=== PATIENT | female | born 1975 | race Caucasian/White ===

== ENCOUNTER → 2020-05-17 11:24 | Outpatient (BNVA) | payer OTHER, SELFPAY | PROVIDERS: Family Provider Nurse Practitioner; PCP Family Medicine; Visit Provider Nurse Practitioner Family | DX: J06.9 Acute upper respiratory infection, unspecified (principal); Z20.818 Contact with and (suspected) exposure to other bacterial communicable diseases | CPT/HCPCS: 87635 ==

== ENCOUNTER → 2020-05-22 11:39 | Outpatient (BNVA) | payer OTHER, SELFPAY | PROVIDERS: Family Provider Nurse Practitioner; PCP Family Medicine; Visit Provider Family Medicine | DX: Z13.6 Encounter for screening for cardiovascular disorders (principal); F98.8 Other specified behavioral and emotional disorders with onset usually occurring in childhood and adolescence | CPT/HCPCS: 80053; 80061; 85025 ==

== ENCOUNTER → 2020-07-03 13:32 | Outpatient (BNVA) | payer OTHER, SELFPAY | PROVIDERS: Family Provider Nurse Practitioner; PCP Family Medicine; Visit Provider Family Medicine | DX: Z79.891 Long term (current) use of opiate analgesic (principal) | CPT/HCPCS: 80307 ==

== ENCOUNTER 2020-09-06 12:55 | Outpatient (CLI) | payer OTHER, SELFPAY ==
--- NOTE | 2020-09-06 12:45 | XR_ITS ---
WS: [id number] Exam: XR thoracic spine 2V [id number] Date/Time of Exam: 09/06/2020 1:47 PM Reason For Exam: back pain Comparison 05/18/2014. No fracture or dislocation. The spaces are preserved. Slightly increased thoracic kyphosis. Normal pa raspinal soft tissues. Osteopenia. XR/XR thoracic spine 2V [id number] IMPRESSION: 1. No fracture or malalignment. 2. Osteopenia. Increased upper thoracic kyphosis
== END 2020-09-06 12:56 | disposition home or self-care (01) ==
PROVIDERS: PCP Family Medicine; Visit Provider Family Medicine
DX: M54.6 Pain in thoracic spine (principal); M85.88 Other specified disorders of bone density and structure, other site
CPT/HCPCS: 72070

== ENCOUNTER 2020-09-18 15:13 | Outpatient (CLI) | payer OTHER, SELFPAY ==
--- NOTE | 2020-09-18 15:15 | XR_ITS ---
WS: [id number] DEXA (DUAL ENERGY X-RAY ABSORPTIOMETRY) Bone mineral density was performed using a [employer] machine. HISTORY: osteopenia on xray COMPARISON: None available. Lumbar spine BMD (L1-L4): 0.793 g/cm2 T score: -3.2 Z score: -2.8 Total hip BMD: Left: 0.643 g/cm2. T score: -2.9 Z score: -2.4 Right: 0.647 g/cm2. T score: -2.9 Z score: -2.3 10 year probability of a major osteoporotic fracture is 7.3%. XR/XR DEXA axial skeleton* [id number] IMPRESSION: OSTEOPOROSIS based upon the WHO classification for females.
== END 2020-09-18 15:14 | disposition home or self-care (01) ==
LOC: RADWPI 15:17
PROVIDERS: PCP Family Medicine; Visit Provider Family Medicine
DX: M85.80 Other specified disorders of bone density and structure, unspecified site (principal); M81.0 Age-related osteoporosis without current pathological fracture
CPT/HCPCS: 77080

== ENCOUNTER → 2020-10-12 09:39 | Outpatient (BNVA) | payer OTHER, SELFPAY | PROVIDERS: PCP Family Medicine; Referring Provider Family Medicine; Visit Provider Anesthesiology Pain Medicine | DX: G89.29 Other chronic pain (principal); M79.18 Myalgia, other site; M54.14 Radiculopathy, thoracic region; M54.6 Pain in thoracic spine; F17.210 Nicotine dependence, cigarettes, uncomplicated; Z79.891 Long term (current) use of opiate analgesic | CPT/HCPCS: 20553; 99204; J1030; J3490 ==

== ENCOUNTER 2020-11-14 17:18 | Outpatient (CLI) | payer OTHER, SELFPAY ==
--- NOTE | 2020-11-14 17:30 | MR_ITS ---
WS: [id number] MRI THORACIC SPINE WITHOUT CONTRAST TECHNIQUE: Sagittal T1, T2 and STIR imaging. Axial T2 imaging. Noncontrast imaging obtained. CLINICAL INFORMATION: M54.14 - Radiculopathy, thoracic region COMPARISON: MRI FINDINGS: Mild thoracic curve. Mild thoracic kyphosis. No acute appearing compression fractures. Cord signal is normal. No high-grade central canal stenosis. Tiny central protrusions more prominent at T5-6 with slight effacement of ventral thecal sac. Tiny ce ntral protrusions at T6-T7 and T7-T8 without significant central canal stenosis. Mild facet arthropat hy lower thoracic spine. No disc extrusions. Normal visualized thoracic aorta. Adrenal glands are normal. 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 MR/MR thoracic spin wo con* [id number] IMPRESSION: 1. Mild thoracic curve. Mild thoracic kyphosis. 2. No acute compression fractures. No significant central canal stenosis. Cord signal is normal. 3. Tiny shallow central protrusion T5-T6 more prominent compared to previous w ith mild central canal stenosis. 4. Tiny shallow central protrusions T6-T7 and T7-T8 without significant spinal canal narrowing. 5. Mild facet arthropathy lower thoracic spine. 6. No other significant findings.
== END 2020-11-14 17:19 | disposition home or self-care (01) ==
LOC: RADSHAW 17:23
PROVIDERS: PCP Family Medicine; Visit Provider Anesthesiology Pain Medicine
DX: M54.14 Radiculopathy, thoracic region (principal); M47.814 Spondylosis without myelopathy or radiculopathy, thoracic region; M51.24 Other intervertebral disc displacement, thoracic region; M40.294 Other kyphosis, thoracic region
CPT/HCPCS: 72146

== ENCOUNTER → 2020-11-21 08:26 | Outpatient (BNVA) | payer OTHER, SELFPAY | PROVIDERS: PCP Family Medicine; Visit Provider Anesthesiology Pain Medicine | DX: G89.29 Other chronic pain (principal); M54.14 Radiculopathy, thoracic region; F17.210 Nicotine dependence, cigarettes, uncomplicated; Z79.891 Long term (current) use of opiate analgesic | CPT/HCPCS: 99214 ==

== ENCOUNTER → 2020-11-29 13:33 | Outpatient (BNVA) | payer OTHER, SELFPAY | PROVIDERS: PCP Family Medicine; Visit Provider Anesthesiology Pain Medicine | DX: G89.29 Other chronic pain (principal); M47.814 Spondylosis without myelopathy or radiculopathy, thoracic region; F17.210 Nicotine dependence, cigarettes, uncomplicated | CPT/HCPCS: 64490; 64491; 64492; J3490 ==

== ENCOUNTER → 2021-01-16 10:15 | Outpatient (BNVA) | payer OTHER, SELFPAY | PROVIDERS: PCP Family Medicine; Visit Provider Nurse Practitioner | DX: J02.0 Streptococcal pharyngitis (principal) | CPT/HCPCS: 87880 ==

== ENCOUNTER → 2021-04-18 13:30 | Outpatient (BNVA) | payer OTHER, SELFPAY | PROVIDERS: PCP Family Medicine; Visit Provider Nurse Practitioner Family | DX: Z20.822 Contact with and (suspected) exposure to COVID-19 (principal) | CPT/HCPCS: 87426 ==

== ENCOUNTER 2021-04-20 07:25 | Outpatient (CLI) | payer OTHER, SELFPAY ==
[2021-04-20 07:39] VITALS: BP 122/86; PULSE 82; RESP 16; TEMP 36.7; O2SAT 94
[2021-04-20 08:02] VITALS: BP 114/81; PULSE 77; RESP 14; O2SAT 95
[2021-04-20 09:10] VITALS: BP 102/74; PULSE 73; RESP 16; TEMP 36.9
== END 2021-04-20 07:26 | disposition home or self-care (01) ==
PROVIDERS: PCP Family Medicine; Visit Provider Family Medicine Adult Medicine
DX: U07.1 COVID-19 (principal)
CPT/HCPCS: 96365

== ENCOUNTER 2021-05-23 17:13 | Outpatient (CLI) | payer OTHER, SELFPAY ==
--- NOTE | 2021-05-23 17:30 | MR_ITS ---
WS: [id number] MRI LUMBAR SPINE NONCONTRAST HISTORY: M54.5 - Low back pain COMPARISON: 06/16/2014 TECHNIQUE: Sagittal and axial multisequence imaging is submitted. Mild thoracic curvature. Mild straightening of the normal lumbar lordosis. Disc spaces and vertebral body heights are well-preserved. Conus terminates normally at L1. L1-L2: Normal. L2-L3: Normal. L3-L4: Small amount of fluid in the facet joints bilaterally with mild ligamentum flavum hypertrophy. Very minimal encroachment into the foramen. No significant stenosis. L4-L5: Mild annular disc bulging with very slight encroachment but no displacement on the traversing L5 nerve roots. Mild bilateral foraminal narrowing. L5-S1: Mild annular disc bulging. Very mild narrowing of the LEFT subarticular recess. No significant encroachment or displacement of the S1 nerve root. There are mild narrowing of the foramen. Paravertebral soft tissues are normal. MR/MR lumbar spine wo con* [id number] IMPRESSION: 1. No focal disc protrusions, high-grade central or foraminal stenosis. 2. Very mild progression of facet joint arthritis from L3-4 to L5-S1 since the prior study with only minimal foraminal narrowing.
== END 2021-05-23 17:14 | disposition home or self-care (01) ==
PROVIDERS: PCP Family Medicine; Visit Provider Nurse Practitioner Family
DX: M54.5 Low back pain (principal); M47.816 Spondylosis without myelopathy or radiculopathy, lumbar region; M47.817 Spondylosis without myelopathy or radiculopathy, lumbosacral region
CPT/HCPCS: 72148

== ENCOUNTER → 2021-11-15 14:47 | Outpatient (BNVA) | payer OTHER, SELFPAY | PROVIDERS: PCP Family Medicine; Visit Provider Family Medicine | DX: R30.0 Dysuria (principal); R53.83 Other fatigue; E78.5 Hyperlipidemia, unspecified; Z79.891 Long term (current) use of opiate analgesic | CPT/HCPCS: 80053; 80061; 80307; 81000; 84443; 85025 ==

== ENCOUNTER 2022-07-21 15:39 | Emergency (ER) | payer OTHER, SELFPAY ==
[2022-07-21 15:48] VITALS: BP 132/88; PULSE 108; RESP 16; TEMP 36.2; O2SAT 97; BMI 23.0
--- NOTE | 2022-07-21 16:35 | XRR_ITS ---
PROCEDURE INFORMATION: Exam: XR Chest Exam date and time: 07/21/2022 5:41 PM Age: 47 years old Clinical indication: Dyspnea; Additional info: Dyspnea/cough TECHNIQUE: Imaging protocol: Radiologic exam of the chest. Views: 1 view. COMPARISON: No relevant prior studies available. FINDINGS: Lungs: Lungs are clear bilaterally. Pleural spaces: No pleural effusion. No pneumothorax. Heart/Mediastinum: The cardiac silhouette and mediastinal contours are unremarkable. Vasculature: Vascular calcifications in the aorta. Bones/joints: Unremarkable for age. XR/XR chest 1V portable [id number] IMPRESSION: 1. No acute cardiopulmonary process. 2. Incidental/nonacute findings are listed in the report.
--- NOTE | 2022-07-21 16:37 | PC.NURSE ---
pt is on amoxicillin x4 days from PCP
--- NOTE | 2022-07-21 16:39 | PC.NURSE ---
pt states she is here due to her back pain and already receiving treatment for respiratory symptoms. pt states she tested negative for flu and covid
--- NOTE | 2022-07-21 16:54 | ED_ITS ---
HPI - URI/Sore Throat General: Chief Complaint: Upper Respiratory Infection Stated Complaint: Back and chest pain Time Seen by Provider: 07/21/22 16:31 Source: patient Mode of arrival: ambulatory History of Present Illness: 47-year-old female presents emergency room claiming back and chest pain. She has 2 separate issues she has had an upper respiratory infection is being treated for pneumonia she feels like it is getting worse she has been antibiotics for the last couple of days. She feels like things are worse because she is not active because of her back pain is been a chronic longstanding issue she has been seen by pain clinic before and had epidural injections which did not seem to help she has been seeing a nurse practitioner and was started on anti-inflammatories and is scheduled to go back to the pain clinic again in late August. She feels like her back is just not improving with the muscle relaxers I gave her I would like to try something different. No recent trauma falls or other recent injury. MD elicited complaint: cough Pertinent past history: pneumonia Onset (ago): day(s) Consistency: constant and progressively worsening Severity: moderate Description of mucous: yellow Able to tolerate fluids by mouth: Yes Exacerbating factors: exertion and deep breaths Relieving factors: nothing Associated symptoms: Reports congestion, cough and short of breath; Deny abdominal pain, change in voice, chills, chest pain, diarrhea, epistaxis, ear or mastoid pain, fever(s), headache(s), myalgias, nasal congestion, nausea, rash, rhinorrhea, sinus pain, stiffness, sore throat or vomiting Treatments prior to arrival: none Review of Systems Const: Denies: fever(s), chills, fatigue or malaise ENMT: Denies: throat pain, ear or mastoid pain, nasal congestion, epistaxis or sinus pain Card: Denies: chest pain Resp: Denies: dyspnea, productive cough or non-productive cough GI: Denies: abdominal pain, nausea, vomiting or diarrhea : Denies: flank pain, difficulty voiding, dysuria, urinary frequency or urinary urgency Musc: Reports: back pain; Denies: extremity pain or extremity swelling Skin/Breast: Denies: rash or pruritus Neuro: Denies: headache(s) PFS ED PFSH: Medical History Attention deficit disorder (ADD) in adult Chronic thoracic back pain KACEY (generalized anxiety disorder) Major depressive disorder Opioid contract exists Reflux involving intestinal tract Sleep disorder Statin intolerance Thoracic back pain Surgical History H/O: hysterectomy Family History Other CAD (coronary artery disease) Cancer Diabetes Hypertension Stroke Social History Smoking and tobacco status: current every day smoker cigarettes Packs smoked per day: 1 Alcohol intake: never Physical Exam Const: COMMON NORMALS: no acute distress GENERAL APPEARANCE: cooperative and comfortable ORIENTATION/CONSCIOUSNESS: Yes awake, Yes oriented to person, Yes oriented to place and Yes oriented to time HENMT: COMMON NORMALS: normocephalic, atraumatic and hearing grossly normal bilaterally HEAD & SCALP: normocephalic and atraumatic Resp: COMMON NORMALS: normal respiratory effort, No retractions, No use of accessory muscles and clear to auscultation bilaterally AUSCULTATION: clear to auscultation bilaterally Cardio: COMMON NORMALS: regular rate, regular rhythm and No murmurs present (Cardio) RATE: regular rate RHYTHM: regular rhythm GI: COMMON NORMALS: Soft to palpation and No hepatosplenomegaly present AUSCULTATION: Yes normoactive bowel sounds PALPATION: Yes Soft to palpation, No Tenderness to palpation present (GI), No Guarding due to palpation present (GI) and Yes No hepatosplenomegaly present Extremity: COMMON NORMALS: normal to inspection, capillary refill normal, no clubbing, cyanosis or edema, no calf tenderness and no pedal edema Neuro: SENSORIUM/ORIENTATION: Yes oriented to person, Yes oriented to place and Yes oriented to time Skin: COMMON NORMALS: no rashes or lesions noted GENERAL SKIN EXAM: no rashes or lesions noted Course Vital Signs: Vital signs: Vital Signs Temperature 97.1 F L 07/21/22 15:48 Pulse Rate 95 07/21/22 17:26 Respiratory Rate 16 07/21/22 15:48 Blood Pressure 119/80 07/21/22 17:06 Pulse Oximetry 97 07/21/22 17:26 Oxygen Delivery Me thod 07/21/22 17:06 MDM - URI/Sore Throat Medical Decision Making Labs and imaging reviewed. Discharge home chronic back pain bronchitis. Continue previously prescribed antibiotics start steroids tizanidine and Lyrica. Follow-up with primary care. Medical Records I reviewed the patient's medical records. Lab Data I reviewed the patient's lab results. 07/21/22 17:08 07/21/22 17:08 Radiology Impressions Chest X-Ray 07/21/22 16:35 IMPRESSION: 1. No acute cardiopulmonary process. 2. Incidental/nonacute findings are listed in the report. Laboratory Results WBC 8.4 10^3/uL (4.0-10.0) 07/21/22 17:08 RBC 4.54 10^6/uL (4.1-5.3) 07/21/22 17:08 Hgb 14.0 g/dL (11.5-15.3) 07/21/22 17:08 Hct 41.0 % (37.0-47.0) 07/21/22 17:08 MCV 90.3 fl (81-99) 07/21/22 17:08 MCH 30.8 pg (28.0-34.0) 07/21/22 17:08 MCHC 34.1 g/dL (30.0-36.0) 07/21/22 17:08 RDW 11.8 % (12.1-15.1) L 07/21/22 17:08 Plt Count 291 10^3/cmm (130-400) 07/21/22 17:08 MPV 9.6 fL (7.4-10.4) 07/21/22 17:08 Neut % (Auto) 65.3 % 07/21/22 17:08 Lymph % (Auto) 25.8 % 07/21/22 17:08 [place] % (Auto) 6.8 % 07/21/22 17:08 Eos % (Auto) 1.1 % 07/21/22 17:08 Baso % (Auto) 0.6 % 07/21/22 17:08 Neut # (Auto) 5.50 10^3/uL (1.8-7.7) 07/21/22 17:08 Lymph # (Auto) 2.2 10^3/uL (0.8-4.8) 07/21/22 17:08 [place] # (Auto) 0.6 10^3/uL (0.2-0.9) 07/21/22 17:08 Eos # (Auto) 0.1 10^3/uL (0.0-0.8) 07/21/22 17:08 Baso # (Auto) 0.1 10^3/uL (0.0-0.1) 07/21/22 17:08 Nucleated RBC % (auto) 0 % 07/21/22 17:08 Nucleated RBCs # 0.0 /100WBC 07/21/22 17:08 Sodium 132 mmol/L (136-145) L 07/21/22 17:08 Potassium 4.0 mmol/L (3.5-5.1) 07/21/22 17:08 Chloride 95 mmol/L (98-107) L 07/21/22 17:08 Carbon Dioxide 27 mmol/L (22-29) 07/21/22 17:08 Anion Gap 14.0 (5-19) 07/21/22 17:08 BUN 11 mg/dL (6-20) 07/21/22 17:08 Creatinine 0.6 mg/dL (0.5-0.9) 07/21/22 17:08 GFR Calculation 106.3 mL/min (90-130) 07/21/22 17:08 Glucose 105 mg/dL (65-115) 07/21/22 17:08 Calculated Osmolality 274 mOsm/kg (285-295) L 07/21/22 17:08 Calcium 9.6 mg/dL (8.5-10.5) 07/21/22 17:08 Total Bilirubin 0.2 mg/dL (0.15-1.2) 07/21/22 17:08 AST 12 U/L (0-32) 07/21/22 17:08 ALT 9 U/L (0-33) 07/21/22 17:08 Alkaline Phosphatase 73 U/L (35-105) 07/21/22 17:08 Total Protein 7.4 g/dL (6.6-8.7) 07/21/22 17:08 Albumin 4.5 g/dL (3.5-5.2) 07/21/22 17:08 Globulin 2.9 g/dL (1.3-4.6) 07/21/22 17:08 Discharge Plan Discharge Patient Disposition: Home Clinical Impression: Bronchitis, Chronic back pain Condition: Stable Prescriptions: New tizanidine 4 mg tablet 4 mg PO Q6H PRN (Reason: muscle spasticity) Qty: 20 0RF Rx Instructions: do not exceed 3 doses per 24 hrs prednisone 20 mg tablet 20 mg PO TID Qty: 15 0RF Rx Instructions: 1 p.o. 3 times daily x3 days, 1 p.o. twice daily x2 days, 1 p.o. daily x2 days Lyrica 75 mg capsule 75 mg PO BID Qty: 60 0RF Discontinued cyclobenzaprine 10 mg tablet 10 mg PO BID PRN (Reason: muscle spasm) Qty: 180 1RF No Action pseudoephedrine HCl [Sinus 12 Hour] 120 mg tablet extended release 120 mg PO Q12H hydrocodone-acetaminophen 7.5-325 mg tablet 1 tab PO Q4H PRN clonazepam 0.5 mg tablet 0.5 mg PO BID Qty: 45 2RF Rx Instructions: Must last 30 days amoxicillin 875 mg tablet 875 mg PO BID Qty: 20 0RF [id number] 3.5-10,000-1 mg/mL-unit/mL-% drops,suspension 4 drp otic (ear) TID 10 Days Qty: 10 0RF levalbuterol HCl [Xopenex] 1.25 mg/3 mL solution for nebulization 2.5 mg inhalation Q6H PRN (Reason: shortness of breath or wheezing) Qty: 72 0RF celecoxib [Celebrex] 200 mg capsule 200 mg PO DAILY Qty: 90 1RF aripiprazole 2 mg tablet 2 mg PO .po q hs Qty: 90 1RF fluoxetine [Prozac] 20 mg capsule 60 mg PO ONCE 90 Days Qty: 270 1RF dextroamphetamine-amphetamine [Adderall XR] 25 mg capsule,extended release 24hr 25 mg PO BID 30 Days Qty: 60 0RF Rx Instructions: generic Do not fill until 06/18/2022 dextroamphetamine-amphetamine [Adderall XR] 25 mg capsule,extended release 24hr 25 mg PO BID 30 Days Qty: 60 0RF terbinafine HCl 250 mg tablet 250 mg PO DAILY Qty: 45 0RF dextroamphetamine-amphetamine [Adderall XR] 25 mg capsule,extended release 24hr 25 mg PO BID 30 Days Qty: 60 0RF Rx Instructions: Generic Do not fill until 07/18/2022 esomeprazole magnesium [Nexium] 40 mg capsule,delayed release(DR/EC) 40 mg PO DAILY Qty: 90 1RF Discharge Orders: Discharge ED (Routine); Ordered 07/21/22 Ordered By: Edmond Pierre Referrals: Luci Carmichael DO [Primary Care Provider] - Patient Instructions: Opioid Safety, Pain Management Coding Level of Care Code ED [employer] Tutor for Chg Fwd Exam Detailed
[2022-07-21 17:06] VITALS: BP 119/80; O2SAT 96
[2022-07-21] MEDS: ketorolac 30 mg/mL INJ IVP (17:19)
[2022-07-21] MEDS: orphenadrine 30 mg/mL Inj 2 mL 60 MG IVP (17:19)
[2022-07-21] MEDS: dexamethasone 10 mg/mL INJ IVP (17:19)
[2022-07-21 17:23] LABS: Basophils # 0.1 10^3/uL (0.0-0.1); Basophils % 0.6 %; Eosinophils # 0.1 10^3/uL (0.0-0.8); Eosinophils % 1.1 %; Lymphocytes # 2.2 10^3/uL (0.8-4.8); Lymphocytes % 25.8 %; Mean Corpuscular HGB Conc 34.1 g/dL (30.0-36.0); Mean Corpuscular Hemoglobin 30.8 pg (28.0-34.0); Mean Corpuscular Volume 90.3 fl (81-99); Mean Platelet Volume 9.6 fL (7.4-10.4); Monocytes # 0.6 10^3/uL (0.2-0.9); Monocytes % 6.8 %; Neutrophils % 65.3 %; Nucleated Red Blood Cells % 0 %; Platelet Count 291 10^3/cmm (130-400); Red Blood Count 4.54 10^6/uL (4.1-5.3); Red Cell Distribution Width 11.8 % (12.1-15.1); White Blood Count 8.4 10^3/uL (4.0-10.0)
[2022-07-21 17:26] VITALS: PULSE 95; O2SAT 97
[2022-07-21 17:45] LABS: Alanine Aminotransferase 9 U/L (0-33); Albumin Level 4.5 g/dL (3.5-5.2); Alkaline Phosphatase 73 U/L (35-105); Aspartate Amino Transferase 12 U/L (0-32); Blood Urea Nitrogen 11 mg/dL (6-20); Calcium 9.6 mg/dL (8.5-10.5); Carbon Dioxide 27 mmol/L (22-29); Chloride 95 mmol/L (98-107); Globulin 2.9 g/dL (1.3-4.6); Glomerular Filtration Rate 106.3 mL/min (90-130); Glucose 105 mg/dL (65-115); Osmolality Calculated 274 mOsm/kg (285-295); Sodium 132 mmol/L (136-145); Total Bilirubin 0.2 mg/dL (0.15-1.2); Total Protein 7.4 g/dL (6.6-8.7)
== END 2022-07-21 17:25 | disposition home or self-care (01) ==
PROVIDERS: Emergency Provider Family Medicine; PCP Family Medicine
DX: J40 Bronchitis, not specified as acute or chronic (principal)
CPT/HCPCS: 71045; 80053; 85025; 96374; 96375; 99284; J1100; J1885; J2360

== ENCOUNTER → 2025-03-20 18:58 | Outpatient (BNVA) | payer OTHER, SELFPAY | PROVIDERS: PCP Family Medicine; Visit Provider Emergency Medicine | DX: J18.9 Pneumonia, unspecified organism (principal) | CPT/HCPCS: 87400; 87426 ==

== ENCOUNTER 2025-07-08 13:31 | Outpatient (CLI) | payer OTHER, SELFPAY ==
--- NOTE | 2025-07-08 13:43 | CT_ITS ---
WS: [id number] CT NECK WITH CONTRAST HISTORY: NEOPLASM OF UNCERTAIN BEHAVIOR OF TONGUE TECHNIQUE: Contiguous 2 mm axial images are performed through the neck with intravenous contrast. Sagittal and coronal reformats are also submitted. All CT scans at [facility] use at least one of these dose optimization techniques: automated exposure control; mA and/or kV adjustment per patient size (includes targeted exams where dose is matched to clinical indication); or iterative reconstruction. CONTRAST: CONTRAST: Omnipaque 350; 100 mL IV. DLP: 141.89 mGy.cm COMPARISON: None available. Well-circumscribed low-attenuation mass in the LEFT parapharyngeal space. There is no adjacent infiltration of the fat. Mass measures 1.4 x 2.0 cm and extends over a length of 2.7 cm. This mass does abut the LEFT carotid artery and the carotid space. There is mild displacement and narrowing of the torus tubarius and the eustachian tube opening. There is slight bulging of the LEFT pharyngeal mucosa centrally but no significant narrowing of the oropharyngeal or nasopharyngeal airway. There is no significant enhancement. Mild asymmetric thickening and enhancement of the RIGHT Keaton tonsil as compared to the LEFT. Round enhancing RIGHT level IIA lymph node measuring 1.4 cm. Smaller and nonenhancing LEFT level IIA lymph node at 0.7 cm. Thyroid gland and salivary glands are normally enhancing with no masses. No osseous abnormalities. Visualized portions of the skull base demonstrate no abnormalities. Orbits and globes are within normal limits. No soft tissue masses. Visualized paranasal sinuses and mastoid air cells are normal. Severe emphysematous changes at the lung apices. CT/CT neck w con* [id number] IMPRESSION: 1. Well-circumscribed low-attenuation mass in the LEFT parapharyngeal space. M ass measures 1.4 x 2.0 x 2.7 cm. No fat infiltration. Differential includes inf ection and malignancy. Branchial cleft cyst, infection or neoplasm need to be e xcluded. Recommend follow-up PET/CT imaging and ENT. 2. There is additional asymmetry and enhancement of the RIGHT Keaton tonsil. PET/CT recommended along with follow-up with ENT. 3. Single abnormal lymph node on the RIGHT at level IIA. There are a few addit ional cervical chain lymph nodes which are not enlarged. 4. Chronic emphysema.
[2025-07-08] MEDS: iohexol 350 mg/mL 500 mL Btl (per mL) IV (13:54)
== END 2025-07-08 13:32 | disposition home or self-care (01) ==
PROVIDERS: PCP Family Medicine; Visit Provider Nurse Practitioner Family
DX: D37.02 Neoplasm of uncertain behavior of tongue (principal); R93.89 Abnormal findings on diagnostic imaging of other specified body structures; R59.0 Localized enlarged lymph nodes; J43.8 Other emphysema
CPT/HCPCS: 70491